=== PATIENT | female | born 1950 | race Caucasian/White ===

== ENCOUNTER → 2016-04-09 | Day surgery (SDC) | payer BC, MEDICARE ==
[~2016-04-09] MED LIST: APAP/HYDROCODONE 325/5 TAB ONE; BUPIVACAINE/EPI 0.5% 10 ML SOL INFIL ONE; CEFAZOLIN SODIUM 1 GM PDS ONE; DEXAMETHASONE 20 MG/5 ML (4 MG/ML SOL) ONE; FENTANYL CITRATE 50 MCG/ML SOL ONE; LIDOCAINE HCL 1% MPF SOL ONE; METOCLOPRAMIDE HYDROCHLORIDE 5 MG/ML SOL ONE; MIDAZOLAM 2 MG/2 ML SOL ONE; ONDANSETRON HCL 4 MG/2 ML SOL ONE; PROPOFOL 10 MG/ML EMU IV ONE; PROPOFOL 500 MG/50 ML EMU IV ONE
[2016-04-09] MEDS: KETOROLAC TROMETHAMINE 30 MG/ML SOL ONE (13:26)
[2016-04-09 13:27] VITALS: RESP 16
[2016-04-09] MEDS: APAP/HYDROCODONE 325/5 TAB ONE (14:14)
[2016-04-09 14:16] VITALS: BP 144/81; PULSE 72; TEMP 98.2; O2SAT 97
== END | disposition home or self-care (01) ==
LOC: SURG 08:20
PROVIDERS: ATTEND Orthopaedic Surgery
DX: S52.532B Colles' fracture of left radius, initial encounter for open fracture type I or II (principal); S52.252A Displaced comminuted fracture of shaft of ulna, left arm, initial encounter for closed fracture; W00.0XXA Fall on same level due to ice and snow, initial encounter
CPT/HCPCS: 25608; 73100; 76000; J0690; J1100; J1885; J2250; J2405; J2765; J3010; A6402

== ENCOUNTER 2016-05-07 10:02 | Outpatient (CLI) | payer BC, MEDICARE ==
[2016-04-09 14:16] VITALS: O2SAT 97
== END 2016-05-07 10:03 | disposition home or self-care (01) ==
LOC: CONVCARE 10:02
PROVIDERS: ATTEND Orthopaedic Surgery
DX: S52.572D Other intraarticular fracture of lower end of left radius, subsequent encounter for closed fracture with routine healing (principal); S52.602D Unspecified fracture of lower end of left ulna, subsequent encounter for closed fracture with routine healing
CPT/HCPCS: 73110

== ENCOUNTER 2016-05-28 12:35 | Outpatient (CLI) | payer BC, MEDICARE ==
[2016-04-09 14:16] VITALS: O2SAT 97
== END 2016-05-28 12:36 | disposition home or self-care (01) ==
LOC: CONVCARE 12:35
PROVIDERS: ATTEND Orthopaedic Surgery
DX: S52.532D Colles' fracture of left radius, subsequent encounter for closed fracture with routine healing (principal)
CPT/HCPCS: 73110

== ENCOUNTER 2016-07-03 07:46 | Outpatient (CLI) | payer BC, MEDICARE ==
[2016-04-09 14:16] VITALS: O2SAT 97
== END 2016-07-03 07:47 | disposition home or self-care (01) ==
LOC: CONVCARE 07:46
PROVIDERS: ATTEND Orthopaedic Surgery
DX: S52.532D Colles' fracture of left radius, subsequent encounter for closed fracture with routine healing (principal); S52.222D Displaced transverse fracture of shaft of left ulna, subsequent encounter for closed fracture with routine healing
CPT/HCPCS: 73100